=== PATIENT | female | born 1990 | race Caucasian/White ===

== ENCOUNTER 2017-12-21 20:40 | Emergency (ER) | payer SELFPAY ==
[2017-12-21 20:41] VITALS: BP 134/84; PULSE 134; RESP 18; TEMP 37.1; O2SAT 100; BMI 22.9
[2017-12-21] MEDS: 0.9% Normal Saline 1,000 ML 999 ML IV (21:14)
[2017-12-21 21:42] LABS: Absolute Lymphocyte Count 0.53 X10^3/ul (0.83-4.51); Absolute Neutrophil Count 13.3 X10^3/uL (2.0-7.7); Basophil# 0.02 X10^3/uL; Basophil% 0.1 % (0-1); Eosinophil# 0.19 X10^3/uL; Eosinophils% 1.3 % (0-5); Hematocrit 37.9 % (37-47); Hemoglobin 12.4 g/dl (12.0-15.0); Lymphocyte # 0.53 X10^3/ul (4.0); Lymphocyte % 3.6 % (19-41); Mean Corp Hgb Conc 32.7 g/gl (32-36); Mean Corpuscular Hgb 29.5 pg (27.0-32.0); Mean Platelet Vol. 10.1 fl (6.2-12.0); Monocyte# 0.83 X10^3/uL; Monocyte% 5.6 % (0-10); Neutrophil # 13.28 X10^3/uL (2.7-7.7); Neutrophil % 89.3 % (47-70); Platelet Count 197 K/mm3 (150-450); RBC Distribution Width CV 12.5 % (11.6-14.6); RBC Distribution Width SD 41.2 fl (35.1-43.9); Red Blood Count 4.21 M/mm3 (4.2-5.4); White Blood Count 14.9 K/mm3 (4.4-11.0)
[2017-12-21 21:44] LABS: Differential Indicated SCAN CRITERIA MET; POSITIVE COUNT NO; POSITIVE DIFFERENTIAL YES; POSITIVE MORPHOLOGY NO
[2017-12-21 21:58] LABS: Anion Gap 6 (5-15); BUN 14 mg/dL (7-18); BUN/Creat Ratio 15.9 RATIO (10-20); Calcium,Total 8.8 mg/dL (8.5-10.1); Chloride 103 mmol/L (98-107); Creatinine, Serum 0.88 mg/dL (0.55-1.02); EST Glomerular Filtration Rate 83 mL/min (>60); Est Glom Filt Rate - Afr Amer 100 mL/min (>60); Estimated Creatinine Clearance 80.84 ml/min; Glucose 88 mg/dL (74-106); Potassium 3.4 mmol/L (3.5-5.1); Sodium Level 136 mmol/L (136-145)
[2017-12-21 22:47] LABS: Platelet Estimate ADEQUATE (ADEQ)
[2017-12-21 22:48] LABS: Differential Comment SCANNED
--- NOTE | 2017-12-21 23:02 | ED.VISSUMM ---
- ER Visit Summary Date of Service: 12/21/17 Chief Complaint: Blown vein History of Present Illness: The patient is a 27 F who was using IV methamphetamine. 2 days ago she injected at her left antecubital fossa. She developed redness and swelling later that day. She denies any systemic symptoms such as fevers chest pain shortness of breath vomiting diarrhea rashes Physical Examination: Heart rate 134 vitals otherwise unremarkable Moist mucous membranes Heart regular rhythm tachycardia I do not appreciate a murmur Lungs are clear Abdomen soft There is a large left antecubital fossa abscess with central fluctuance and a large surrounding area of cellulitis she is neurovascularly intact with normal pulses brisk capillary refill normal sensation she has no pain in the elbow with short arc range of motion Test Results: Laboratory studies notable for white blood cell count 14.9, potassium 3.4. Bedside ultrasound did confirm fluid collection. Emergency Department Course and Treatment: She was anesthetized with 2 cc of 1% local lidocaine the cruciate incision was made with a #11 blade and there was copious purulent drainage. Bleeding was controlled with direct pressure. Patient was also treated with IV Unasyn and vancomycin. I recommended hospitalization given her tachycardia leukocytosis and cellulitis. The patient refuses. We discussed risks and benefits including benefits of further IV antibiotics and risks of developing bacteremia endocarditis organ failure or . She vocalized understanding. She elected to leave AGAINST MEDICAL ADVICE. We will send her home on Keflex and Bactrim. She understands to return for new or worsening symptoms and was advised to return for a wound check regardless. Treatment Plan: [] Disposition: Discharge Impression: Left AC abscess Cellulitis Sepsis syndrome This note was generated with [employer] dictation software. It may contain incorrect words, spelling, and punctuation that were not noted in review of the chart prior to signing ED Disposition - Plan for ED Patient: Chief Complaint: Abscess Referrals: Care Physician,No Primary [Primary Care Provider] -
--- NOTE | 2017-12-21 23:05 | ED.DEP ---
ED Disposition - Plan for ED Patient: Chief Complaint: Abscess Instructions: ED Abscess IandD, ED Infec Skin Cellulitis Prescriptions: Cephalexin [Keflex] 500 mg PO Q6 #40 cap Smz/Tmp Ds [Bactrim Ds] 1 tab PO BID #20 tab Referrals: Care Physician,No Primary [Primary Care Provider] - Patrick Reyez DO [STAFF PHYSICIAN] -
--- NOTE | 2017-12-21 23:28 | ED.RN ---
PT REFUSES TO LET THIS RN OBTAIN VITALS, STATES I KNOW MY HEART RATE IS HIGH, BUT IT'S JUST HIGH BECAUSE I HAVE ANXIETY, STATES SHE IS TOO ANXIOUS TO ALLOW ANYONE TO DO VITALS.
[2017-12-22 01:13] VITALS: BP 129/85; PULSE 115; RESP 18; O2SAT 99
[2017-12-22 01:40] VITALS: BP 129/85; PULSE 114; RESP 18; O2SAT 99
== END 2017-12-22 01:41 | disposition home or self-care (01) ==
LOC: ED 21:04
PROVIDERS: Emergency Provider Emergency Medicine
DX: L02.414 Cutaneous abscess of left upper limb (principal); L03.114 Cellulitis of left upper limb; A41.9 Sepsis, unspecified organism; Z87.442 Personal history of urinary calculi
CPT/HCPCS: 10060; 80048; 85025; 87040; 96361; 96365; 96367; 99284; J7030; J7050; A4216; J0295

== ENCOUNTER 2018-08-04 22:57 | Emergency (ER) | payer SELFPAY ==
[2018-08-04 22:58] VITALS: BP 148/88; PULSE 128; RESP 19; TEMP 36.2; O2SAT 98; BMI 26.1
[2018-08-04] MEDS: Acetaminophen 500 MG Tablet 1000 MG PO (23:37)
[2018-08-05 00:17] LABS: Absolute Lymphocyte Count 1.29 X10^3/ul (0.83-4.51); Absolute Neutrophil Count 9.4 X10^3/uL (2.0-7.7); Basophil# 0.02 X10^3/uL; Basophil% 0.2 % (0-1); Eosinophil# 0.16 X10^3/uL; Eosinophils% 1.4 % (0-5); Hemoglobin 9.7 g/dl (12.0-15.0); Lymphocyte # 1.29 X10^3/ul (4.0); Lymphocyte % 11.4 % (19-41); Mean Corp Hgb Conc 32.3 g/gl (32-36); Mean Corpuscular Hgb 29.2 pg (27.0-32.0); Mean Corpuscular Volume 90.4 fL (81-99); Mean Platelet Vol. 9.3 fl (6.2-12.0); Monocyte# 0.48 X10^3/uL; Monocyte% 4.2 % (0-10); Neutrophil # 9.36 X10^3/uL (2.7-7.7); Neutrophil % 82.5 % (47-70); Platelet Count 277 K/mm3 (150-450); RBC Distribution Width CV 12.9 % (11.6-14.6); Red Blood Count 3.32 M/mm3 (4.2-5.4); White Blood Count 11.3 K/mm3 (4.4-11.0)
[2018-08-05 00:20] LABS: POSITIVE COUNT NO; POSITIVE DIFFERENTIAL NO; POSITIVE MORPHOLOGY NO
[2018-08-05 00:44] LABS: ALB/GLOB Ratio 0.6 RATIO (0.9-2.4); AST(SGOT) 29 U/L (15-37); Alanine Aminotransfer ALT/SGPT 25 U/L (13-56); Albumin, Serum 2.6 g/dL (3.2-5.0); Alkaline Phosphatase 105 U/L (45-117); Anion Gap 10 (5-15); BUN 17 mg/dL (7-18); BUN/Creat Ratio 23.5 RATIO (10-20); Calcium,Total 8.4 mg/dL (8.5-10.1); Chloride 107 mmol/L (98-107); Creatinine, Serum 0.72 mg/dL (0.55-1.02); EST Glomerular Filtration Rate 104 mL/min (>60); Est Glom Filt Rate - Afr Amer 126 mL/min (>60); Estimated Creatinine Clearance 98.81 ml/min; Globulin 4.3 g/dL (2.2-4.2); Glucose 96 mg/dL (74-106); Lipase 102 U/L (73-393); Potassium 3.5 mmol/L (3.5-5.1); Protein, Total 6.9 g/dL (6.4-8.2); Sodium Level 141 mmol/L (136-145)
[2018-08-05 01:01] LABS: Pregnancy, Serum, hCG Quali. POSITIVE Negative (0-9 Nonpreg)
--- NOTE | 2018-08-05 01:02 | ED.RN ---
RECEIVED CALL FROM LAB. BETA HCG POSITIVE AT 2,403. DR. ROJAS NOTIFIED.
--- NOTE | 2018-08-05 01:14 | US_ITS ---
HISTORY: RUQ PAIN....PT JUST FOUND OUT SHE IS ....R/O ECTOPIC LMP: Unknown. Beta-hCG: Unknown. Provided EGA: none. TECHNIQUE: Transabdominal pelvic ultrasound was performed. COMPARISON: None FINDINGS: Single live intrauterine fetus with a gestational age by ultrasound based on multiple measurements of 20 weeks and 5 days with an estimated due date of 12/18/2018. heart rate 156 bpm. Breech presentation. Normal amniotic fluid volume. Anterior placenta which is not low lying. Placental grade 1. The uterine cervix is closed. Cervical length 3.2 cm. The right ovary is visualized and appears normal. Left ovary is not seen. No free pelvic fluid. US/OB Limited With Biometrics IMPRESSION: Single live intrauterine fetus with a gestational age by ultrasound of 20 weeks and 5 days and estimated due date of 12/18/2018. No acute abnormality identified. at 0303 Reported and signed by: Anthony Mcintyre MD Electronically Signed: Anthony Mcintyre, at 3:02 EST Tel , Service support ,
[2018-08-05 01:36] VITALS: BP 116/60; PULSE 114; RESP 16; O2SAT 99
[2018-08-05 02:10] LABS: hCG Titer Quant., Serum 2476 mIU/mL (<9 non-preg)
--- NOTE | 2018-08-05 03:16 | ED.VISSUMM ---
- ER Visit Summary Date of Service: 08/05/18 Chief Complaint: Abdominal pain History of Present Illness: The patient is a 27 F who presents with abdominal pain. She states my gallbladder is acting up. She has known gallstones. She states she was told by a surgeon that her ultrasound was really bad and that her gallbladder was likely to rupture within 6 weeks. However she states that due to insurance issues and without an indication for any emergent surgery she could not have a cholecystectomy. She states she has had a right upper quadrant pain radiating through to the back over the last 3-4 days which is stabbing in nature and worse today. She complains of nausea but states is actually better after drinking water or going to the bathroom and that she always has nausea when she needs to urinate. She denies fevers or vomiting. She denies urinary symptoms. She denies any pelvic pain vaginal bleeding or vaginal discharge. Physical Examination: Heart rate 128 vitals otherwise unremarkable Moist mucous membranes Heart regular rhythm tachycardia Patient appears very anxious with pressured speech Lungs are clear Abdomen soft with right upper quadrant abdominal tenderness no guarding no rebound no Prince's sign Test Results: Labs notable for white blood count 11.3, hemoglobin 9.7. is positive. Quantitative hCG 2476. Blood type O-. Pelvic ultrasound shows a single live IUP at 20 weeks and 5 days. Emergency Department Course and Treatment: Laboratory studies as above. She does not have evidence of acute cholecystitis. She does not have fever or vomiting. She does not have a Prince sign. Normal hepatic function and lipase. Her came back positive and she went for pelvic ultrasound which shows a at 20 weeks of gestation. She was referred to obstetrics for follow-up. She understands to return for new or worsening symptoms. She was discharged. Treatment Plan: [] Disposition: Discharge Impression: Abdominal pain Second trimester This note was generated with [employer] dictation software. It may contain incorrect words, spelling, and punctuation that were not noted in review of the chart prior to signing ED Disposition - Plan for ED Patient: Chief Complaint: Abd Pain Referrals: Care Physician,No Primary [Primary Care Provider] -
--- NOTE | 2018-08-05 03:19 | ED.DEP ---
ED Disposition - Plan for ED Patient: Chief Complaint: Abd Pain Instructions: ED Abdominal Pain Preg Gallstones Referrals: Care Physician,No Primary [Primary Care Provider] - Pauly Raza MD [STAFF PHYSICIAN] -
[2018-08-05 03:29] VITALS: BP 137/82; PULSE 118; RESP 16; O2SAT 98
== END 2018-08-05 03:30 | disposition home or self-care (01) ==
LOC: ED 08-05 00:14
PROVIDERS: Emergency Provider Emergency Medicine
DX: O26.892 Other specified pregnancy related conditions, second trimester (principal); R10.11 Right upper quadrant pain; R00.0 Tachycardia, unspecified; O99.332 Smoking (tobacco) complicating pregnancy, second trimester; Z3A.20 20 weeks gestation of pregnancy
CPT/HCPCS: 36415; 76816; 80053; 83690; 84702; 84703; 85025; 86900; 99283

== ENCOUNTER 2018-10-12 16:20 | Outpatient (CLI) | payer SELFPAY ==
[2018-10-12 17:02] VITALS: BMI 28.9
--- NOTE | 2018-10-12 17:50 | OB.TRI.NOTE ---
History of Present Illness Date of Service: 10/12/18 Was patient seen by the physician?: Yes Reason For Visit: R/O LABOR Date of Service: 10/12/18 Final KRISTEN: 12/19/18 Gestational age: 30 Weeks and 2 Days History of Present Illness: This is a 28-year-old 3 para 1 AB 1 who presents to labor and delivery with no care. She was jailed last and she began having some Alexander Braga contractions during her incarceration and she was brought to labor and delivery. She indicates that she was seen in the emergency room in July and had an ultrasound at that time at which time her estimated date of confinement was December 19, 2018. She did not follow-up for care as was instructed. She was recently arrested for using drugs: Specifically, methamphetamine; she also indicates that she is recently used marijuana and alcohol and is a heavy smoker. She indicates her only vaginal was induced for rupture of membranes. During that she had issues with kidney stones requiring stent placement during her . Her other was a termination. She indicates that she had gallbladder problems and wanted to get her gallbladder out so she terminated the . Allergies adhesive tape Adverse Reaction (Verified 08/04/18 22:57) Rash - Pertinent Past Medical History Pertinent Past Medical History: Patient is a heavy smoker. She is also used methamphetamines alcohol and THC heavily until she found out she was at 5 months gestation. She has also recently used illicit drugs. She continues to smoke heavily. Review of Systems Cardiovascular: Denies: Chest Pain, Palpitations Respiratory: Denies: Shortness of Breath, Wheezing Gastrointestinal: Denies: Constipation, Diarrhea, Nausea, Vomiting Genitourinary: Reports: - - She has problems with kidney stones but is actually doing pretty well this . Denies: Dysuria, Frequency, Hematuria, Incontinence, Urgency Unable to obtain accurate/complete ROS d/t: Incomplete review of systems due to patient insisting on leaving. Comment: Patient was anxious to leave because she indicated the need to smoke. Physical Exam General: Alert, Oriented x3, No apparent distress HEENT: Atraumatic, Normocephalic. Negative for: Thyromegaly, Lymphadenopathy Abdomen: Gravid Neurological: Neuro grossly intact Estimated gestational size: Appropriate for gestational size Cervix Dilation (cm): 0 Station: -3 Effacement (%): 0 NST - FHR Rate Baby A NST Reactive:: Yes FHR Category:: Category I Impression/Plan 30+ week intrauterine with transient contractions now denied by the patient and not visualized on the monitor. She insisted on leaving prior to completion of her history per the nursing staff. Significant history of drug abuse during this and significant history of kidney stones in past . No care. labs were drawn along with toxicology screen. Nonstress test was reactive. Patient declines ultrasound today although she did have an ultrasound in the hospital in July per her history. Recommended she follow-up with either our office or whoever she chooses for care during the next week.
[2018-10-12 17:57] LABS: Mucous, Urine 0 SEEN /hpf (<or=2+)
[2018-10-12 18:01] LABS: Color, Urine Yellow (Yellow); Glucose, Dipstick Normal (Normal); Ketone-Dipstick Negative (Negative); Leukocyte Esterase-Dipstick 100 /ul (Negative); Nitrite-Dipstick Negative (Negative); Occult Blood-Urine Negative /ul (Negative); Protein-Dipstick Negative (Negative); Urine Bilirubin Dipstick Negative (Negative); Urine Clarity Sl. Cloudy (Clear); Urine Urobilinogen Normal (Normal)
[2018-10-12 18:15] LABS: Bacteria 3+ /hpf (None Seen); Red Blood Cells-Urine 0-5 SEEN /hpf (0-5); Squamous Epithelial Cells - UA 5-10 SEEN /hpf (5-10); White Blood Cells 0-5 SEEN /hpf (0-5)
[2018-10-12 18:20] LABS: Amphetamine Urine VISTA NEGATIVE (<1000 ng/mL); Barbiturate Urine VISTA NEGATIVE (< 200 ng/mL); Benzodiazepine Urine VISTA NEGATIVE (< 200 ng/mL); Cocaine Urine VISTA NEGATIVE (< 300 ng/mL); Ecstacy Urine VISTA NEGATIVE (< 500 ng/mL); Methadone Urine VISTA NEGATIVE (< 300 ng/mL); PCP Urine VISTA NEGATIVE (< 25 ng/mL); THC Urine VISTA NEGATIVE (< 50 ng/mL); Vista UDS pH Range 6
[2018-10-12 18:20] LABS: Absolute Lymphocyte Count 1.29 X10^3/ul (0.83-4.51); Absolute Neutrophil Count 10.2 X10^3/uL (2.0-7.7); Basophil# 0.01 X10^3/uL; Basophil% 0.1 % (0-1); Eosinophil# 0.13 X10^3/uL; Eosinophils% 1.1 % (0-5); Hematocrit 32.9 % (37-47); Hemoglobin 10.6 g/dl (12.0-15.0); Lymphocyte # 1.29 X10^3/ul (4.0); Lymphocyte % 10.7 % (19-41); Mean Corp Hgb Conc 32.2 g/gl (32-36); Mean Corpuscular Volume 89.9 fL (81-99); Mean Platelet Vol. 10.7 fl (6.2-12.0); Monocyte# 0.41 X10^3/uL; Monocyte% 3.4 % (0-10); Neutrophil # 10.17 X10^3/uL (2.7-7.7); Neutrophil % 84.5 % (47-70); Platelet Count 215 K/mm3 (150-450); RBC Distribution Width CV 12.7 % (11.6-14.6); RBC Distribution Width SD 40.9 fl (35.1-43.9); Red Blood Count 3.66 M/mm3 (4.2-5.4)
[2018-10-12 18:21] LABS: POSITIVE COUNT NO; POSITIVE DIFFERENTIAL NO; POSITIVE MORPHOLOGY NO
[2018-10-12 18:28] LABS: Prothrombin Time (Protime)PT. 12.5 SECONDS (11.7-14.9)
[2018-10-12 18:35] LABS: Anion Gap 6 (5-15); BUN 8 mg/dL (7-18); BUN/Creat Ratio 10.5 RATIO (10-20); Calcium,Total 8.4 mg/dL (8.5-10.1); Chloride 110 mmol/L (98-107); Creatinine, Serum 0.76 mg/dL (0.55-1.02); EST Glomerular Filtration Rate 97 mL/min (>60); Est Glom Filt Rate - Afr Amer 117 mL/min (>60); Estimated Creatinine Clearance 92.79 ml/min; Glucose 98 mg/dL (74-106); Potassium 3.7 mmol/L (3.5-5.1); Sodium Level 138 mmol/L (136-145)
[2018-10-12 19:22] LABS: HIV - WCH Non-Reactive (Nonreactive); Rubella IgG 177.3 IU/mL
[2018-10-12 20:43] LABS: Neisserai gonorrhoeae by PCR Negative (Negative); Probe Check PASS
[2018-10-12 20:44] LABS: Chlamydia Trachomatis by PCR POSITIVE (Negative)
[2018-10-14 11:21] LABS: HEPATITIS B SURFACE AG Negative (Negative); Hep C Antibodies <0.1 s/co ratio (0.0-0.9)
[2018-10-16 02:05] LABS: Rapid Plasmin Reagin (RPR) NONREACTIVE (NONREACTIVE)
== END 2018-10-12 18:20 | disposition home or self-care (01) ==
LOC: WP 17:01 → WPOUT 10-13 11:20
PROVIDERS: Referring Provider Obstetrics & Gynecology; Visit Provider Obstetrics & Gynecology
DX: O09.33 Supervision of pregnancy with insufficient antenatal care, third trimester (principal); O99.333 Smoking (tobacco) complicating pregnancy, third trimester; O99.323 Drug use complicating pregnancy, third trimester; F15.10 Other stimulant abuse, uncomplicated; F12.10 Cannabis abuse, uncomplicated; O99.310 Alcohol use complicating pregnancy, unspecified trimester; Z3A.30 30 weeks gestation of pregnancy
CPT/HCPCS: 59050; 80048; 80307; 81001; 85025; 85610; 86592; 86703; 86762; 86803; 86850; 86900; 87340; 87491; 87591; 99218; G0378

== ENCOUNTER 2018-11-19 20:30 | Inpatient (IN) | payer SELFPAY ==
[2018-11-19] MEDS: Lactated Ringers 1,000 ML 50 ML IV (20:30)
[2018-11-19 20:47] VITALS: BMI 29.2
[2018-11-19] MEDS: Oxytocin 30 units/NS 500 ml 30 UNITS/500 ML IV.SOLN 334 UNITS IV (20:50)
--- NOTE | 2018-11-19 21:01 | PCM.HP.OB ---
- Problem List (1) No care in current Status: Acute (2) Placental abruption Status: Acute (3) Methadone use Status: Acute (4) Precipitous delivery Status: Acute History Date of Admission: 09/17/13 History of this : This is a 28 year-old, G [], P [], at weeks gestational age. Allergies adhesive tape Adverse Reaction (Verified 08/04/18 22:57) Rash Home Medications: Home Medications NK 08/04/18 Smoking Status: Current every day smoker Alcohol: None Number of Fetus(es): 1 Heart Tracin to 80s History Past Pregnancies: Past Pregnancies previous term uncomplicated - doesn't have custody Expected Delivery Method: Spontaneous Vaginal Review of Systems Gastrointestinal: Reports: Abdominal Pain Gynecological: Reports: Vaginal bleeding Physical Exam General: Confused, Disoriented, Non-Cooperative Cardiovascular: Tachycardic Lungs: Normal air movement Abdomen: Soft, Tender Extremities:: No edema Estimated gestational size: Small for gestational age Presentation: Cephalic Cervix Dilation (cm): 10 Assessment/Plan All Active Problems No care in current (Acute) Placental abruption (Acute) Methadone use (Acute) Precipitous delivery (Acute) This is a 28 year-old, at ? 36 weeks gestational age presents in active labor and delivered precipitously No care Methamphetamine use patient admits to use yesterday Patient wishing to put baby up for adoption Vaginal delivery with 20% abruption
[2018-11-19] MEDS: Oxytocin 30 units/NS 500 ml 30 UNITS/500 ML IV.SOLN 167 UNITS IV (21:20)
[2018-11-19 22:31] LABS: Absolute Lymphocyte Count 0.33 X10^3/ul (0.83-4.51); Absolute Neutrophil Count 12.2 X10^3/uL (2.0-7.7); Basophil# 0.01 X10^3/uL; Basophil% 0.1 % (0-1); Eosinophil# 0.02 X10^3/uL; Eosinophils% 0.2 % (0-5); Hematocrit 33.7 % (37-47); Hemoglobin 10.8 g/dl (12.0-15.0); Lymphocyte # 0.33 X10^3/ul (4.0); Lymphocyte % 2.6 % (19-41); Mean Corpuscular Hgb 27.4 pg (27.0-32.0); Mean Corpuscular Volume 85.5 fL (81-99); Mean Platelet Vol. 11.2 fl (6.2-12.0); Monocyte# 0.29 X10^3/uL; Monocyte% 2.3 % (0-10); Neutrophil # 12.15 X10^3/uL (2.7-7.7); Neutrophil % 94.5 % (47-70); Platelet Count 201 K/mm3 (150-450); RBC Distribution Width CV 12.8 % (11.6-14.6); Red Blood Count 3.94 M/mm3 (4.2-5.4); White Blood Count 12.8 K/mm3 (4.4-11.0)
[2018-11-19 22:33] LABS: Differential Indicated SCAN CRITERIA MET; POSITIVE COUNT NO; POSITIVE DIFFERENTIAL YES; POSITIVE MORPHOLOGY NO
[2018-11-19 22:58] LABS: Differential Comment SCANNED
[2018-11-19 23:56] LABS: Mucous, Urine 0 SEEN /hpf (<or=2+)
[2018-11-19 23:59] LABS: Color, Urine Red (Yellow); Glucose, Dipstick Normal (Normal); Ketone-Dipstick 15 mg/dl (Negative); Leukocyte Esterase-Dipstick 500 /ul (Negative); Nitrite-Dipstick Positive (Negative); Occult Blood-Urine 250 /ul (Negative); Protein-Dipstick 100 mg/dl (Negative); Urine Clarity Cloudy (Clear); Urine Urobilinogen Normal (Normal)
[2018-11-20 00:12] LABS: Urine Bilirubin Dipstick 1 mg/dL (Negative)
[2018-11-20 00:19] LABS: Bacteria 1+ /hpf (None Seen); Red Blood Cells-Urine > 100 SEEN /hpf (0-5); Squamous Epithelial Cells - UA 0-5 SEEN /hpf (5-10); White Blood Cells 5-10 SEEN /hpf (0-5)
[2018-11-20 00:26] LABS: Amphetamine Urine VISTA POSITIVE (<1000 ng/mL); Barbiturate Urine VISTA NEGATIVE (< 200 ng/mL); Benzodiazepine Urine VISTA NEGATIVE (< 200 ng/mL); Cocaine Urine VISTA NEGATIVE (< 300 ng/mL); Ecstacy Urine VISTA NEGATIVE (< 500 ng/mL); Methadone Urine VISTA NEGATIVE (< 300 ng/mL); PCP Urine VISTA NEGATIVE (< 25 ng/mL); THC Urine VISTA POSITIVE (< 50 ng/mL); Vista UDS pH Range 7
--- NOTE | 2018-11-20 02:35 | NURSING ---
Dr. Clay called and updated on UA results, that G/C and GBS had not yet been collected but that when pt was last here she tested positive for chlamydia and was never treated. Also notified that pt was currently signed out of unit for almost an hour. Orders given: ok to cancel GBS, macrobid 100mg BID x7 days, and azithromycin 1 g PO x1.
[2018-11-20 02:45] VITALS: BP 119/70; PULSE 93; RESP 16; TEMP 36.7; O2SAT 98
[2018-11-20] MEDS: Nitrofurantoin Macrocrystals 100 MG Capsule PO ×3 (03:28→22:11)
[2018-11-20] MEDS: Azithromycin 250 MG Tablet 1000 MG PO (03:29)
[2018-11-20 06:00] VITALS: BP 127/76; PULSE 69; RESP 18; TEMP 36.3; O2SAT 99
[2018-11-20] MEDS: Etonogestrel 68 MG IMPLANT SQ (07:38)
--- NOTE | 2018-11-20 07:46 | PCM.OPRPT ---
Problem List (1) No care in current Status: Acute (2) Placental abruption Status: Acute (3) Methadone use Status: Acute (4) Precipitous delivery Status: Acute Vaginal Delivery Maternal Presentation: Active Labor preciptious delivery methamphetamine use mom care Pre-Operative Diagnosis: No care precipitous delivery Post-Operative Diagnosis: Same +20% abruption Surgery/ Procedure Performed: Spontaneous Vaginal Delivery Description of Procedure: Patient presented by squad with no care and completely dilated with ruptured membranes clear. Is approximately 36 weeks based on an ultrasound that she had done at 19 weeks. There were heart rate variable decelerations into the 80s patient began pushing and delivered the head atraumatically followed by the anterior posterior shoulders the rest the delivered was placed in the maternal abdomen cord clamped and cut placenta delivered spontaneously immediately following was noted to have a 20% abruption and a significant amount of dark blood that came with it. No significant lacerations EBL 200 cc Placental Delivery Description: Spontaneous Placenta Disposition: [facility] Estimated Blood Loss: 200 A gender: Male Episiotomy Description: None Laceration: None Medications given after delivery: IV Pitocin Complications: None
--- NOTE | 2018-11-20 07:46 | PCM.OPRPT ---
Problem List (1) No care in current Status: Acute (2) Placental abruption Status: Acute (3) Methadone use Status: Acute (4) Precipitous delivery Status: Acute Report of Operation Date of Procedure: 11/20/18 Surgery/Procedure Performed:: nexplanon insertion Description of Procedure: chlorhexadine prep right arm, injected with lidocaine, 3mm incision made on the lower arm and nexplanon inserted without difficulty. steri strip and wrap applied. - Admit VTE Documentation VTE Present on Admission: No
[2018-11-20 08:00] VITALS: BP 114/70; PULSE 70; RESP 22; TEMP 36.4
[2018-11-20 10:31] LABS: Neisserai gonorrhoeae by PCR Negative (Negative); Probe Check PASS
[2018-11-20 10:32] LABS: Chlamydia Trachomatis by PCR POSITIVE (Negative)
[2018-11-20] MEDS: Senna/Docusate Sodium 1 Tablet PO (11:28)
[2018-11-20 11:37] VITALS: BP 127/84; PULSE 69; RESP 18; TEMP 36.6
[2018-11-20 16:47] VITALS: BP 125/78; PULSE 65; RESP 18; TEMP 36.7
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
[2018-11-20 20:49] VITALS: BP 127/72; PULSE 86; RESP 14; TEMP 36.3; O2SAT 97
[2018-11-21 02:12] VITALS: BP 117/69; PULSE 82; RESP 18; TEMP 36.5; O2SAT 98
[2018-11-21 08:15] VITALS: BP 137/87; PULSE 84; RESP 16; TEMP 36.6; O2SAT 99
--- NOTE | 2018-11-21 09:28 | PCM.PN.OB ---
Patient Problems: Active and Suspected Problems No care in current (Acute) Placental abruption (Acute) Methadone use (Acute) Precipitous delivery (Acute) Subjective: doing well no complaints pain controlled no CP SOB N V ambulating well tolerating po lochia moderate, still planning to adopt baby out - Physical Exam General: Alert, Oriented x3 Abdomen: Soft, Non Tender, - - FF below U Vital Signs Temp Pulse Resp BP Pulse Ox 97.9 F 84 16 137/87 H 99 11/21/18 08:15 11/21/18 08:15 11/21/18 08:15 11/21/18 08:15 11/21/18 08:15 Oxygen Delivery Method Room Air Weight: 165 lb Body Mass Index (BMI) 29.2 Intake and Output for Last 24 Hours 11/19/18 11/20/18 11/21/18 23:59 23:59 23:59 Intake Total 1334 / 1334 Output Total 400 / 400 Balance 934 / 934 Laboratory Tests Past 24 Hrs 11/20/18 06:45 Chlam trachomat DNA PCR POSITIVE H N.gonorrhoeae DNA (PCR) Negative Medical Necessity - Tobacco Use Smoking Status: Current every day smoker Assessment/Plan All Active Problems No care in current (Acute) Placental abruption (Acute) Methadone use (Acute) Precipitous delivery (Acute) s/p PPD # 1 1. routine post delivery care 2. bandage removed from nexplanon site. Small bruising, no drainage 3. rh negative 4. rubella immune 5. Positive UTI and chlamydia. Both treated. Needs 6 wk pp visit and LINDSEY for chlamydia 6. Discussed adoption plan. She will see social security assessor today. Does not want to take baby home. 7. Discharge home today.
--- NOTE | 2018-11-21 09:32 | PN.OBGYN_ITS ---
Patient Problems: Active and Suspected Problems No care in current (Acute) Placental abruption (Acute) Methadone use (Acute) Precipitous delivery (Acute) Subjective: doing well no complaints pain controlled no CP SOB N V ambulating well tolerating po lochia moderate, still planning to adopt baby out - Physical Exam General: Alert, Oriented x3 Abdomen: Soft, Non Tender, - - FF below U Vital Signs Temp Pulse Resp BP Pulse Ox 97.9 F 84 16 137/87 H 99 11/21/18 08:15 11/21/18 08:15 11/21/18 08:15 11/21/18 08:15 11/21/18 08:15 Oxygen Delivery Method Room Air Weight: 165 lb Body Mass Index (BMI) 29.2 Intake and Output for Last 24 Hours 11/19/18 11/20/18 11/21/18 23:59 23:59 23:59 Intake Total 1334 / 1334 Output Total 400 / 400 Balance 934 / 934 Laboratory Tests Past 24 Hrs 11/20/18 06:45 Chlam trachomat DNA PCR POSITIVE H N.gonorrhoeae DNA (PCR) Negative Medical Necessity - Tobacco Use Smoking Status: Current every day smoker Assessment/Plan All Active Problems No care in current (Acute) Placental abruption (Acute) Methadone use (Acute) Precipitous delivery (Acute) s/p PPD # 1 1. routine post delivery care 2. bandage removed from nexplanon site. Small bruising, no drainage 3. rh negative 4. rubella immune 5. Positive UTI and chlamydia. Both treated. Needs 6 wk pp visit and LINDSEY for chlamydia 6. Discussed adoption plan. She will see child protective services social worker today. Does not want to take baby home. 7. Discharge home today.
--- NOTE | 2018-11-21 09:32 | PCM.DCVAG ---
Additional Instructions: If you experience any of the following, contact your healthcare provider. Bleeding that soaks a pad every hour for 2 hours Fever 100.4 or higher Unrelieved incision or abdominal pain Swelling, redness, discharge or bleeding from your incision or episiotomy site Your incision begins to separate Problems urinating (including inability to urinate or burning while urinating). Visual changes Severe headache Flu-like symptoms Pain or redness in one of both of your breasts Pain, warmth, tenderness or swelling in your legs, especially the calf area Frequent nausea and vomiting Symptoms of depression or anxiety If you experience any of the following, call 911 or go to the nearest Emergency Room. Chest pain Problems breathing Seizure activity Partial or complete paralysis of a body part, slurred speech, weakness or drooping of the face, or a sudden inability to walk or hold your balance Allergies/Adverse Reactions: Allergies adhesive tape Adverse Reaction (Verified 11/19/18 22:12) Rash Primary Care Physician: Care Physician,No Primary [Primary Care Provider] - Test Results: Test results from this visit will be discussed in further detail at your follow-up appointment, if applicable.
--- NOTE | 2018-11-21 09:33 | DCINST_ITS ---
Additional Instructions: If you experience any of the following, contact your healthcare provider. * Bleeding that soaks a pad every hour for 2 hours * Fever 100.4 or higher * Unrelieved incision or abdominal pain * Swelling, redness, discharge or bleeding from your incision or episiotomy site * Your incision begins to separate * Problems urinating (including inability to urinate or burning while urinating). * Visual changes * Severe headache * Flu-like symptoms * Pain or redness in one of both of your breasts * Pain, warmth, tenderness or swelling in your legs, especially the calf area * Frequent nausea and vomiting * Symptoms of depression or anxiety If you experience any of the following, call 911 or go to the nearest Emergency Room. * Chest pain * Problems breathing * Seizure activity * Partial or complete paralysis of a body part, slurred speech, weakness or drooping of the face, or a sudden inability to walk or hold your balance Allergies/Adverse Reactions: Allergies adhesive tape Adverse Reaction (Verified 11/19/18 22:12) Rash Primary Care Physician: Care Physician,No Primary [Primary Care Provider] - Test Results: Test results from this visit will be discussed in further detail at your follow- up appointment, if applicable.
--- NOTE | 2018-11-21 11:50 | CASEMGMT ---
Social Work Labor and Delivery Unit Reason for follow-up:Communication with patient/mother of baby (MOB) Janki Loza. MOB's sister Sade Solomon also present with MOB's permission Summary of Family/Staff/Agency Contact: Approached by nursing staff for both [facility] and the [facility] regarding MOB having questions about paperwork. Met with MOB at baby's bedside. MOB agreeable to have conversation in the SCN, did not voice interest in taking conversation to a more private area. MOB asked questions about the certificate and whether father of baby (FOB) Hernan Palma would still have to sign off on an adoption if not on certificate. Educated MOB that yes, FOB would has LAMONT has been identified as the father to this baby. So far FOB has not been to hospital to visit. Intent for baby/adoption planning: MOB addressed topic of adoption. MOB reports was given the name of [place] adoption agency in [place] as an agency MOB can go through. MOB showed this handbook writer a picture of a single woman who wants to adopt. MOB reports to like this woman, believes that could be friends with this woman and eventually take trips to [place] together. Educated MOB there are other options for adoption agencies and this handbook writer would provide some so that MOB has choices. Educated MOB that it is MOB's responsibility to call the adoption agency to initiate adoption of baby. Let MOB know that if makes contact with an agency then to give the agency this handbook writer's name and number. Educated MOB that this handbook writer will be pursuing a children services referral in the meantime. MOB voices understanding and agreement. Behavioral Health issues: Addressed with MOB referrals to mental health treatment or drug and alcohol treatment. MOB does not want a referral to drug and alcohol treatment. MOB reports still considering mental health referral and accepting of resource lists. Let MOB know this handbook writer willing to assist MOB with mental health referral is MOB so desires. Provided MOB with community resource information to take home and review. Assessment: MOB reports plan to leave the hospital today, does not want a courtesy room to stay in. MOB reports will come back to hospital to visit the baby, but does not want to take a room that someone else may need to use. MOB reports that wants Sade to be able to call in and also MOB's mother. Informed MOB to address with nursing staff before leaving hospital premises as to who can call in to check on baby and to leave good numbers to reach MOB in case of an emergency or need for immediate update. MOB states Hernan's number is good as well as [place]'s. MOB held baby during social work visit and then handed baby off to [place] as conversation was ending. MOB was gentle with baby. MOB talkative, spontaneous and circumstantial in conversation today, giving much details but eventually coming back to topic at hand. MOB accepted redirection by manager social media. MOB accepting of resources offered today. Resources Provided: Pamphlets on [employer], Adoption by [facility], [facility], Adoption [place], and [facility] (all adoption agencies). Medicaid application. WIC applications. Mental health and substance abuse treatment providers list. [facility], [facility] for Kids program, Car seat program. Plan: MOB is discharging as a patient today. Does not plan to use a courtesy provided room while baby remains on the SCN. nutrition services worker will continue to follow family while baby is a patient on the SCN. MOB had previously agreed to [facility] referral for baby and will be completed from the [facility]. Will be making a referral to children services in [place] on Friday as baby remains safe in the hospital over the weekend time frame. MOB is aware of intent for children services referral. -DANIELLA Bland, RAND TACKER
[2018-11-21] MEDS: Nitrofurantoin Macrocrystals 100 MG Capsule PO ×2 (12:31→14:58)
[2018-11-21 15:00] VITALS: BP 118/72; PULSE 78; RESP 18; TEMP 37.1; O2SAT 97
--- NOTE | 2018-11-23 12:45 | CASEMGMT ---
Social Work Labor and Delivery Unit Patient/mother of baby (MOB) was discharged on 11.21.2018. Called [facility] ([facility]) today, 11.23.2018, regarding substance exposed . Reported other risk factors for this family including maternal homelessness, lack of care, untreated mental health, and MOB's stated intent for adoption of baby but so far no work done by MOB to initiate an adoption plan for baby. Reported brief maternal and histories as indicated for referral. No other services requested or indicated at this time. Social work continues to follow family while baby is admitted to the [facility]. -DANIELLA Bland, CLINICAL OFFICE TECHNICIAN
[2018-11-25 12:07] LABS: Amphetamine Positive (.); AmphetamineGC/MS Conf 960 ng/mL (Cutoff=500); Methamphetamines Positive (.)
[2018-11-25 15:23] LABS: Amphetamine Ur Confirm Positive (.)
== END 2018-11-21 15:00 | disposition home or self-care (01) | DRG 805 ==
PROVIDERS: Admitting Provider Obstetrics & Gynecology; Visit Provider Obstetrics & Gynecology
DX: O45.93 Premature separation of placenta, unspecified, third trimester (principal); O75.3 Other infection during labor; O98.32 Other infections with a predominantly sexual mode of transmission complicating childbirth; O99.324 Drug use complicating childbirth; O62.3 Precipitate labor; O76 Abnormality in fetal heart rate and rhythm complicating labor and delivery; A74.9 Chlamydial infection, unspecified; F15.90 Other stimulant use, unspecified, uncomplicated; O99.334 Smoking (tobacco) complicating childbirth; Z3A.36 36 weeks gestation of pregnancy; Z37.0 Single live birth
CPT/HCPCS: 59025; 59050; 76815; 80307; 81001; 85025; 85461; 86850; 86900; 87491; 87591; 90384; 99218; J7120; G0378; J2790

== ENCOUNTER → 2019-02-10 16:02 | Outpatient (CLI) | payer MEDICAID, SELFPAY ==
[2018-12-11 11:00] VITALS: BMI 29.2
[2019-02-10 18:16] LABS: Color, Urine Yellow (Yellow); Glucose, Dipstick Normal (Normal); Ketone-Dipstick Negative (Negative); Leukocyte Esterase-Dipstick 25 /ul (Negative); Nitrite-Dipstick Negative (Negative); Occult Blood-Urine Negative /ul (Negative); Protein-Dipstick Negative (Negative); Specific Gravity, Urine 1.015 (1.002-1.030); Urine Bilirubin Dipstick Negative (Negative); Urine Clarity Clear (Clear); Urine Urobilinogen Normal (Normal)
== END ==
DX: R10.9 Unspecified abdominal pain (principal)
CPT/HCPCS: 81002; 87086; 87088

== ENCOUNTER → 2019-02-12 11:51 | Outpatient (CLI) | payer MEDICAID, SELFPAY ==
[2018-12-11 11:00] VITALS: BMI 29.2
[2019-02-12 12:26] LABS: Color, Urine Yellow (Yellow); Glucose, Dipstick Normal (Normal); Ketone-Dipstick Negative (Negative); Leukocyte Esterase-Dipstick 500 /ul (Negative); Nitrite-Dipstick Negative (Negative); Occult Blood-Urine Negative /ul (Negative); Protein-Dipstick 15 mg/dl (Negative); Specific Gravity, Urine 1.015 (1.002-1.030); Urine Bilirubin Dipstick Negative (Negative); Urine Clarity Sl. Cloudy (Clear); Urine Urobilinogen Normal (Normal)
[2019-02-12 12:28] LABS: Bacteria 2+ /hpf (None Seen); Red Blood Cells-Urine 0 SEEN /hpf (0-5); Squamous Epithelial Cells - UA 5-10 SEEN /hpf (5-10); White Blood Cells 10-25 SEEN /hpf (0-5)
[2019-02-12 12:29] LABS: Mucous, Urine RARE /hpf (<or=2+)
== END ==
DX: R10.9 Unspecified abdominal pain (principal); G89.29 Other chronic pain
CPT/HCPCS: 81001; 87086; 87088